=== PATIENT | male | born 1975 | race Caucasian/White ===

== ENCOUNTER 2017-03-04 20:31 | Emergency (ER) | payer SELFPAY ==
[~2017-03-04] VITALS: Ht 172.7 cm; Wt 148.0 kg
[2017-03-04 20:37] VITALS: Ht 172.7 cm; Wt 148.0 kg
[2017-03-04] MEDS ORDERED: IBUP-1542 PO (22:32)
--- NOTE | 2017-03-04 22:34 | ERD ---
ER Documentation Chief Complaint Date/Time DATE: 03/04/17 TIME: 22:33 Chief Complaint left leg swelling x 1 day, sp L knee surgery 1 month ago HPI Patient is a 41-year-old male past medical history of hypertension who presents to the emergency department for concerns of left leg swelling 1 day. Patient underwent a left meniscus repair approximately 1 month ago. Patient states he started physical therapy this week. Patient reports current physical therapy twice. Patient denies any falls or trauma. Patient denies any fevers, chills, nausea, vomiting, back pain or LOC. Patient is ambulate with crutches without any difficulty. Patient denies any erythema or swelling to the incision sites. He was referred here to the ED for Doppler study to rule out DVT by his infection control specialist Dr. Barajas. ROS All systems reviewed and are negative except as per history of present illness. Medications Home Meds Active Scripts Ibuprofen* (Motrin*) 600 Mg Tab, 600 MG PO Q6, #20 TAB Prov:SOUMYA FUENTES PA-C 03/04/17 Allergies Allergies: Coded Allergies: No Known Allergy (Verified Allergy, 04/15/11) PMhx/Soc History of Surgery: Yes (Left arthroscopic meniscus repair 02/09) Anesthesia Reaction: No Hx Neurological Disorder: No Hx Respiratory Disorders: No Hx Cardiac Disorders: Yes (htn) Hx Psychiatric Problems: No Hx Miscellaneous Medical Probl: No Hx Alcohol Use: Yes (OCCASSIONALLY) Hx Substance Use: No Hx Tobacco Use: No Smoking Status: Never smoker Physical Exam Vitals Vital Signs Date Time Temp Pulse Resp B/P Pulse Ox O2 Delivery O2 Flow Rate FiO2 03/04/17 20:37 99.0 97 20 170/101 97 Physical Exam GENERAL: Well-developed, well-nourished male. Appears in no acute distress. HEAD: Normocephalic, atraumatic. EYES: Pupils are equally reactive bilaterally. EOMs grossly intact. No conjunctival erythema. ENT: Moist mucous membranes. No uvula deviation. No kissing tonsils. NECK: Supple. No meningismus. Normal range of motion of the neck. LUNG: Clear to auscultation bilaterally. No rhonchi, wheezing, rales or coarse breath sounds. HEART: Regular rate and rhythm. No murmurs, rubs or gallops. EXTREMITIES: Equal pulses bilaterally. No peripheral clubbing, cyanosis or edema. No unilateral leg swelling. NEUROLOGIC: Alert and oriented. Moving all four extremities without any difficulty. Normal speech. Steady gait. SKIN: Normal color. Warm and dry. No rashes or lesions. LEFT LEG: No obvious deformity, erythema or ecchymosis noted. Incisional sites are nonerythematous, healing well. No signs of wound dehiscence. Slight swelling noted to the patient's left calf. Skin intact. Normal range of motion of the knee and ankle. No pain with dorsiflexion of the calf. Nontender to palpation of the knee, tibia-fibula, ankle, midfoot. Sensation intact to light touch. Neurovascularly intact. (Able to plantarflex, dorsiflex, mary foot, invert foot, raise big toe.) 2+ DP and DT pulses. Procedures/MDM ED COURSE: The patient was stable throughout ED course. I kept the patient and/or family informed of laboratory and diagnostic imaging results throughout the ED course. DIAGNOSTIC IMAGING: Read by radiologist. DIAGNOSTIC IMAGING REPORT Patient: ROHAN ARREGUIN : 1975 Age: 41 Sex: M MR #: [id number] DOS: 03/04/17 2147 Ordering MD: SOUMYA FUENTES PA-C Location: [facility] Room/Bed: PROCEDURE: US left lower extremity venous Doppler CLINICAL INDICATION: Swelling TECHNIQUE: Multiple sonographic images of the left lower extremity deep venous system was obtained utilizing grayscale, color-flow, compressive sonography and Doppler imaging with augmentation. COMPARISON: No pertinent prior examinations were submitted for comparison. FINDINGS: There is normal compressibility and flow within the left common femoral, superficial femoral, popliteal, and calf veins. The left peroneal vein is not visualized. IMPRESSION: No sonographic evidence for left deep venous thrombosis. RPTAT: HIKT .Chang Qiu MD, Date Time Electronically viewed and signed by .Chang Qiu MD, MD on 03/04/2017 23:22 .T/ CC: SOUMYA FUENTES PA-C PROCEDURES: None. MEDICAL DECISION MAKING: This is a 41-year-old male who presents the emergency department for concerns of left leg swelling 1 day. Patient did recently undergo meniscus repair of his left knee. Patient was referred to the emergency department by his infection control specialist to rule out a DVT. Patient denies any recent trauma or falls. Vital signs were reviewed. Patient was afebrile. Doppler ultrasound was unremarkable for DVT. At this time there is no indication for x-ray imaging given that patient denied any recent falls or trauma. Given these findings, the patients presentation is most consistent with left leg swelling and pain. I have a much lower clinical concern for ankle fracture, patella fracture, tibial plateau fracture, septic joint, gout, popliteal cyst, prepatellar bursitis, patellofemoral syndrome, patellar tendinitis, osteomyelitis, DVT or compartment syndrome. PRESCRIPTIONS: Ibuprofen DISCHARGE: At this time, patient is stable for discharge and outpatient management. RICE therapy and ROM exercises were advised to avoid stiffness. I have instructed the patient to follow-up with his/her primary care physician in 1-2 days. I have discussed with the patient the possibility of needing to see an infection control specialist for further workup and imaging if the pain persists. I have instructed the patient to promptly return to the ER for any new or worsening symptoms including increased pain, swelling, redness, warmth or fever. The patient and/or family expressed understanding of and agreement with this plan. All questions were answered. Home care instructions were provided. Patients blood pressure was elevated (>120/80) but appears stable without evidence of hypertensive emergency, hypertensive urgency or end-organ failure. I had discussion with the patient about the risks of hypertension. I have advised the patient to follow up with his/her primary care physician for outpatient monitoring and treatment for hypertension in 2-3 days. I have instructed the patient to return to the ER for any new or worsening symptoms including chest pain, shortness of breath, headache, blurred vision, confusion, nausea, vomiting or LOC. Disclaimer: Inadvertent spelling and grammatical errors are likely due to EHR/ dictation software use and do not reflect on the overall quality of patient care. Also, please note that the electronic time recorded on this note does not necessarily reflect the actual time of the patient encounter. Departure Diagnosis: Primary Impression: Swelling of left lower extremity Condition: Stable Patient Instructions: Possible Causes of Low Back or Leg Pain Referrals: [facility] YOU HAVE RECEIVED A MEDICAL SCREENING EXAM AND THE RESULTS INDICATE THAT YOU DO NOT HAVE A CONDITION THAT REQUIRES URGENT TREATMENT IN THE EMERGENCY DEPARTMENT. FURTHER EVALUATION AND TREATMENT OF YOUR CONDITION CAN WAIT UNTIL YOU ARE SEEN IN YOUR DOCTORS OFFICE WITHIN THE NEXT 1-2 DAYS. IT IS YOUR RESPONSIBILITY TO MAKE AN APPOINTMENT FOR FOLOW-UP CARE. IF YOU HAVE A PRIMARY DOCTOR --you should call your primary doctor and schedule an appointment IF YOU DO NOT HAVE A PRIMARY DOCTOR YOU CAN CALL OUR PHYSICIAN REFERRAL HOTLINE AT IF YOU CAN NOT AFFORD TO SEE A PHYSICIAN YOU CAN CHOSE FROM THE FOLLOWING [facility] [address] [facility] [address] [facility] [address] [facility] [address] [facility] [address] [facility] [address] [facility]. [facility] [address] [facility] [address] [facility] [facility] YOU HAVE RECEIVED A MEDICAL SCREENING EXAM AND THE RESULTS INDICATE THAT YOU DO NOT HAVE A CONDITION THAT REQUIRES URGENT TREATMENT IN THE EMERGENCY DEPARTMENT. FURTHER EVALUATION AND TREATMENT OF YOUR CONDITION CAN WAIT UNTIL YOU ARE SEEN IN YOUR DOCTORS OFFICE WITHIN THE NEXT 1-2 DAYS. IT IS YOUR RESPONSIBILITY TO MAKE AN APPOINTMENT FOR FOLOW-UP CARE. IF YOU HAVE A PRIMARY DOCTOR --you should call your primary doctor and schedule and appointment IF YOU DO NOT HAVE A PRIMARY DOCTOR YOU CAN CALL OUR PHYSICIAN REFERRAL HOTLINE AT . IF YOU CAN NOT AFFORD TO SEE A PHYSICIAN YOU CAN CHOSE FROM THE FOLLOWING [facility] INSTITUTIONS: [facility] [address] [place] [address] [facility] [address] [place] [address] [facility] + [facility] [address] [place] [address] [facility] Hours: Mon-Fri 9:00 AM - 5:00 PM Additional Instructions: Call your primary care doctor TOMORROW for an appointment during the next 1-2 days.See the doctor sooner or return here if your condition worsens before your appointment time. Follow-up with your infection control specialist for further management of your ongoing symptoms. SOUMYA FUENTES PA-C Mar 04, 2017 22:34
--- NOTE | 2017-03-04 23:23 | RADRPT ---
PROCEDURE: US left lower extremity venous Doppler CLINICAL INDICATION: Swelling TECHNIQUE: Multiple sonographic images of the left lower extremity deep venous system was obtained utilizing grayscale, color-flow, compressive sonography and Doppler imaging with augmentation. COMPARISON: No pertinent prior examinations were submitted for comparison. FINDINGS: There is normal compressibility and flow within the left common femoral, superficial femoral, poplit eal, and calf veins. The left peroneal vein is not visualized. IMPRESSION: No sonographic evidence for left deep venous thrombosis. RPTAT: HIKT .Chang Qiu MD, MD Date Time Electronically viewed and signed by .Chang Qiu MD, MD on 03/04/2017 23:22 .T/
[2017-03-04 23:48] VITALS: BP 125/83; RESP 20
== END 2017-03-04 23:49 | disposition home or self-care (01) ==
LOC: FTE 20:31
DX: M79.89 Other specified soft tissue disorders (principal); I10 Essential (primary) hypertension
CPT/HCPCS: 93971